=== PATIENT | female | born 1985 | race Two or more races ===

== ENCOUNTER 2019-02-06 13:06 | Emergency (ER) | payer OTHER ==
[~2019-02-06] VITALS: Ht 160 cm; Wt 81.6 kg
[~2019-02-06 13:06] MED LIST: PRENATAL CAPLE1 EACH PO
[2019-02-06] MEDS ORDERED: OSEL75CA PO (17:20)
[2019-02-06] MEDS ORDERED: TUSSI PRES-B L120 M1 PO (17:20)
== END 2019-02-06 17:25 | disposition home or self-care (01) ==
LOC: ER 13:06
DX: B34.9 Viral infection, unspecified (principal)

== ENCOUNTER 2021-03-22 05:30 | Inpatient (IN) | payer OTHER ==
[~2021-03-22] VITALS: Ht 160 cm; Wt 93.4 kg
[~2021-03-22 05:30] MED LIST changes: +OSEL75CA PO; +TUSSI PRES-B L120 M1 PO
== END 2021-03-24 13:09 | disposition home or self-care (01) | DRG 807 ==
LOC: LDR 05:30 → SURG-SUITE 20:51
PROVIDERS: ADMIT Specialist; ATTEND Specialist
PROC: 10E0XZZ Delivery of Products of Conception, External Approach (ICD-10-PCS; principal; 2021-03-22)
PROC: 10907ZC Drainage of Amniotic Fluid, Therapeutic from Products of Conception, Via Natural or Artificial Opening (ICD-10-PCS; 2021-03-22)
PROC: 3E0P7VZ Introduction of Hormone into Female Reproductive, Via Natural or Artificial Opening (ICD-10-PCS; 2021-03-22)
PROC: 4A1HXFZ Monitoring of Products of Conception, Cardiac Rhythm, External Approach (ICD-10-PCS; 2021-03-22)
DX: O36.5930 Maternal care for other known or suspected poor fetal growth, third trimester, not applicable or unspecified (principal); Z37.0 Single live birth; Z3A.38 38 weeks gestation of pregnancy; Z20.822 Contact with and (suspected) exposure to COVID-19

== ENCOUNTER 2023-09-19 09:31 | Emergency (ER) | payer OTHER ==
[~2023-09-19] VITALS: Ht 160 cm; Wt 59.0 kg
[2023-09-19 13:02] LABS: HEMATOCRIT 40.3 % (36.0-45.00); HEMOGLOBIN 12.9 g/dL (12.0-15.00); MEAN CELL VOLUME 86.7 fL (80.00-100.00); MEAN CORPUSCULAR HEMOGLOBIN 27.8 pg (27.00-32.0); PLATELET COUNT 241 K/uL (150-450); RED BLOOD COUNT 4.64 M/uL (4.00-6.00); RED CELL DISTRIBUTION WIDTH 13.2 % (11.5-14.5)
[2023-09-19 13:23] LABS: PH,URINE 5.5 (5.0-8.0); URINE APPEARANCE Clear; URINE BILIRRUBIN Negative (NEGATIVE); URINE BLOOD Trace; URINE COLOR Dark Yellow; URINE GLUCOSE Negative (NEGATIVE); URINE LEUKOCYTE Negative; URINE NITRATE Negative; URINE PROTEIN 30 (NEGATIVE); URINE UROBILINOGEN 0.2 E.U./dl
[2023-09-19 13:25] LABS: URINE BACTERIA 692.9 uL (0.0-1933); URINE EPITHELIAL CELLS 46.2 uL (0.0-38.8); URINE WBC 26.9 uL (0.0-23.2)
[2023-09-19 13:33] LABS: ALBUMIN 3.4 gm/dL (3.4-5.0); BILIRUBIN TOTAL 0.34 mg/dL (0.3-1.2); CALCIUM 8.8 mg/dL (8.5-10.1); CREATININE SERUM 0.67 mg/dL (0.55-1.02); GFR 99.04; POTASSIUM 3.15 mEq/L (3.5-5.1); TOTAL PROTEIN 7.4 gm/dL (6.4-8.2)
[2023-09-19 13:57] LABS: URINE CRYSTALS NEGATIVE /HPF; URINE YEAST FEW /hpf
== END 2023-09-19 17:07 | disposition home or self-care (01) ==
LOC: ER 09:31
PROVIDERS: Emergency Medicine
DX: K52.89 Other specified noninfective gastroenteritis and colitis (principal)